=== PATIENT | female | born 1980 | race Two or more races ===

== ENCOUNTER → 2018-05-06 | Day surgery (SDC) | payer BC ==
[~2018-05-06] VITALS: Ht 157.5 cm; Wt 75.3 kg
[~2018-05-06] MED LIST: GLYCOPYRROLATE 0.2 MG/ML 1ML VIAL ONE; HYDROmorphone HCL 2 MG/ML VL IV PRN; KETOROLAC TROMETH 30 MG/ML 1ML VIAL IV ONE; KETOROLAC TROMETH 60MG/2ML VIAL IM ONE; MEPERIDINE HCL (50 MG/ML) 1 ML VIAL ONE; METOCLOPRAMIDE HCL 5MG/ml INJ 2ml VIAL IV ONE; METOCLOPRAMIDE HCL 5MG/ml INJ 2ml VIAL ONE; MIDAZOLAM HCL 1MG/1ML-2 ML VIAL ONE; NEOSTIGMINE 1 MG/ML INJ (10mg/10ML VIAL) ONE; ONDANSETRON HCL 4 MG/2 ML VIAL ONE; PROPOFOL 10 MG/ML 20 ML IV ONE; ROCURONIUM 10MG/ML 10ML VIAL IV ONE; SODIUM CHLORIDE LOCK 20 ML ONE; SUCCINYLCHOLINE CHLORIDE 20 MG/ML 10ML VIAL IV ONE; fentaNYL CITRATE 100 MCG/2 ML VL ONE
[2018-05-06 10:04] VITALS: BP 103/62
== END | disposition home or self-care (01) ==
LOC: SUR 06:45
PROVIDERS: ATTEND Obstetrics & Gynecology Gynecologic Oncology
DX: N80.0 Endometriosis of uterus (principal); N92.0 Excessive and frequent menstruation with regular cycle; N83.201 Unspecified ovarian cyst, right side; Z3A.08 8 weeks gestation of pregnancy
CPT/HCPCS: 49322; 58558; 58563; 88305; J0330; J1885; J2175; J2250; J2405; J2704; J2765; J3010